=== PATIENT | female | born 1965 | race American Indian/Alaskan Native ===

== ENCOUNTER 2016-12-04 13:16 | Emergency (ER) | payer OTHER | END 2016-12-04 14:15 | disposition left against medical advice (07) | LOC: ED 13:16 | DX: R50.9 Fever, unspecified (principal); R11.0 Nausea; Z53.21 Procedure and treatment not carried out due to patient leaving prior to being seen by health care provider ==

== ENCOUNTER 2016-12-31 07:47 | Day surgery (SDC) | payer OTHER ==
[~2016-12-31 07:47] MED LIST: FLAGYL 500 MG/100 ML 500 MG/100 ML BAG IV NR
[2016-12-31] MEDS ORDERED: NACL BACTERIOSTATIC INFILTRATI ONE (08:10)
--- NOTE | 2016-12-31 08:22 | Anesthesia Consultation ---
Anesthesia Consult and Med Hx Date of service: 12/31/16 - Airway Anesthetic Teeth Evaluation: Poor, Chipped ROM Head & Neck: Adequate Mental/Hyoid Distance: Adequate Mallampati Class: Class II Intubation Access Assessment: Probably Good - Pulmonary Exam CTA: Yes - Cardiac Exam Cardiac Exam: RRR - Pre-Operative Health Status ASA Pre-Surgery Classification: ASA3 Proposed Anesthetic Plan: General - Pulmonary Hx Smoking: Yes Hx Asthma: No COPD: No Hx Pneumonia: No Hx Sleep Apnea: No - Cardiovascular System Hx Hypertension: Yes (15 YRS) Hx Percutaneous Transluminal Coronary Angioplasty (PTCA): No - Central Nervous System Hx Psychiatric Problems: No - Gastrointestinal Hx Ulcer: No - Endocrine Hx Cirrhosis: No Hx Insulin Dependent Diabetes: Yes - Other Systems Hx Alcohol Use: Yes (OCCASIONALLY) Hx Substance Use: No Hx Cancer: No
--- NOTE | 2016-12-31 08:22 | Anesthesia Day of Surgery ---
Anesthesia Day of Surgery - Day of Surgery Patient Examined: Yes Patient H&P Reviewed: Yes Patient is NPO: Yes
[2016-12-31] MEDS ORDERED: DILAUDID IV PRN (08:23)
[2016-12-31] MEDS: NACL 0.9% 1000 ML 1,000 ML IV SCH ×2 (08:37→11:30)
[2016-12-31] MEDS: VERSED IV NR ×2 (08:44→09:18)
[2016-12-31] MEDS ORDERED: SUBLIMAZE ONE (08:49)
[2016-12-31] MEDS ORDERED: DIPRIVAN 10 MG/ML IV ONE (08:49)
[2016-12-31] MEDS ORDERED: DECADRON ONE (08:56)
[2016-12-31] MEDS ORDERED: ZOFRAN ONE (08:56)
[2016-12-31] MEDS ORDERED: PEPCID PO NR (09:00)
[2016-12-31] MEDS ORDERED: NEO SYNEPHRINE/NS Syringe(OR USE) IV ONE (09:58)
[2016-12-31] MEDS ORDERED: PROAIR IH ONE (10:05)
[2016-12-31] MEDS ORDERED: OMNIPAQUE (300 MG) IV ONE ×2 (10:14)
[2016-12-31] MEDS ORDERED: WATER FOR IRRIG STERILE IR ONE ×3 (10:14)
[2016-12-31] MEDS ORDERED: XYLOCAINE MPF 2% ONE (10:19)
[2016-12-31] MEDS ORDERED: DILAUDID ONE (10:19)
[2016-12-31] MEDS ORDERED: TORADOL ONE (10:24)
--- NOTE | 2016-12-31 10:35 | Short Stay Summary ---
Short Stay Documentation Date of service: 12/31/16 - History H&P: obtained from office - Allergies and Medications Current Medications: Allergies acetaminophen [From Percocet] Adverse Reaction (Verified 01/28/15 01:53) Unknown doxycycline Adverse Reaction (Verified 01/28/15 01:53) Unknown erythromycin base Adverse Reaction (Verified 01/28/15 01:53) Unknown latex Adverse Reaction (Verified 01/28/15 01:52) Unknown oxycodone HCl [From Percocet] Adverse Reaction (Verified 01/28/15 01:53) Unknown prochlorperazine edisylate [From Compazine] Adverse Reaction (Verified 01/28/15 01:52) Unknown prochlorperazine maleate [From Compazine] Adverse Reaction (Verified 01/28/15 01 :52) Unknown propoxyphene napsylate [From Darvocet-N] Adverse Reaction (Verified 01/28/15 01: 53) Unknown tuberculin, purified protein deriva [tuberculin,purif.prot.deriv.] Adverse Reaction (Verified 01/28/15 01:53) Unknown Home Medications Medication Instructions Recorded Confirmed Last Taken Type Aspirin [Aspirin BABY CHEW TAB] 81 mg PO DAILY 01/28/15 12/28/16 12/23/16 History Insulin Glargine,Hum.rec.anlog 75 units SQ QHS 01/28/15 12/28/16 10/14/15 History [Lantus] Insulin Lispro [HumaLOG VIAL] 30 units SQ AC 01/28/15 12/31/16 1 Week Ago History Losartan/Hydrochlorothiazide 1 tab PO DAILY 01/28/15 12/31/16 12/31/16 06:30 History [Hyzaar 100-25 TAB] 1 TAB Pravastatin Sodium [Pravastatin] 20 mg PO DAILY 01/28/15 12/31/16 12/30/16 10: 00 History 20MG Estrogen,Joselin/Me-Testosterone 1 each PO 12/28/16 12/30/16 10:00 History [Eemt Ds 1.25-2.5 mg Tablet] Insulin Glargine,Hum.rec.anlog 75 units SQ QHS 12/28/16 12/31/16 12/30/16 22:00 History [Toujeo Solostar] 75 UNITS Mirabegron [Myrbetriq] 50 mg PO QDAY 12/31/16 12/31/16 12/30/16 10:00 History Active Medications Famotidine (Pepcid) 20 mg PO PREOP NR Stop: 12/31/16 23:59 Last Admin: 12/31/16 08:41 Dose: 20 mg Hydromorphone HCl (Dilaudid) 0.5 mg IV Q10MIN PRN PRN Reason: Pain , Severe (7-10) Stop: 12/31/16 16:00 Metronidazole (Flagyl 500 Mg/100 Ml) 500 mg in 100 mls @ 100 mls/hr IV PREOP NR PRN Reason: Protocol Stop: 12/31/16 23:59 Sodium Chloride (Nacl 0.9% 1000 Ml) 1,000 mls @ 100 mls/hr IV DIRECT RAY Last Admin: 12/31/16 08:37 Dose: 100 mls/hr Midazolam HCl (Versed) 2 mg IV PREOP NR Stop: 12/31/16 23:59 Last Admin: 12/31/16 09:18 Dose: 1 mg - Brief post op/procedure progress note Date of procedure: 12/31/16 Pre-op diagnosis: recurrent UTI Post-op diagnosis: same Procedure: cysto, rpg, hydrodistention (700cc) urethral dilation Anesthesia: GETA Surgeon: JESSE MICHAEL Condition: stable - Hospital course Hospital course: ceftin & norco - Disposition Condition at discharge: Stable Disposition: DISCHARGED TO HOME OR SELFCARE Short Stay Discharge Plan Follow up with: ZACHERY BENAVIDES MD [Primary Care Provider] - 7 Days
--- NOTE | 2016-12-31 10:43 | Post Anesthesia Evaluation ---
- Post Anesthesia Evaluation Patient Participated: Yes Airway Patent: Yes Stable Respiratory Function: Yes Nausea/Vomiting: No Temp > 96.8F: Yes Pain Manageable: Yes Adequeate Hydration: Yes Anesthesia Complications: No
--- NOTE | 2016-12-31 11:18 | Operative Report ---
PREOPERATIVE DIAGNOSES: Recurrent urinary tract infection, microhematuria. POSTOPERATIVE DIAGNOSES: Recurrent urinary tract infection, microhematuria. SECONDARY DIAGNOSIS: Urethral stenosis. PROCEDURE: Cystoscopy, bilateral retrograde pyelograms, hydrodistention, urethral dilatation to [place]. SURGEON: Abilio Camarena M.D. ANESTHESIA: General. ANESTHESIOLOGIST: Harry Mckeon M.D. ESTIMATED BLOOD LOSS: Minimal. FLUIDS: Crystalloid. COMPLICATIONS: No complications. INDICATIONS: This patient is a 51-year-old female seen in the office for recurrent urinary tract infection. The patient states she has had multiple UTIs in the past and was noted to have scar tissue. CT of abdomen and pelvis was unremarkable. She presents now for surgical intervention. Previously, she has had an appendectomy and hysterectomy. DESCRIPTION OF PROCEDURE: The patient was taken to the operative suite, placed into supine position. After adequate general anesthesia, placed in a dorsal lithotomy position, prepped and draped in a sterile fashion. Pancystourethroscopy was performed with a 22[place] cystoscope. The patient was noted to have some urethral stenosis. Bladder, no tumors or stones were noted. Both ureteral orifices in normal position. Bilateral retrograde pyelograms were obtained with an 8[place] catheter and 8 mL of contrast. No filling defects or obstruction. The patient was noted to have some retained dye from appears to be previous colonic procedure (Gastrografin enema, etc.). Bilateral retrograde pyelograms were obtained with an 8[place] catheter and 8 mL of contrast. No filling defects or obstruction. Hydrodistention was performed. Bladder capacity of 700 mL. Second look into her bladder, no petechiae or hemorrhage to suggest IC. Urethral dilatation with sounds to [place] was performed. The patient tolerated the procedure well. She was extubated and taken to the recovery room. She will go home on Ceftin and [place] and follow up in the office. JOB# [id number] [facility]
[2016-12-31] MEDS ORDERED: BENADRYL IV ONE (11:45)
[2016-12-31 12:30] VITALS: BP 126/89
--- NOTE | 2016-12-31 12:39 | Fluoroscopy Report ---
RETROGRADE PYELOGRAM: History: Hematuria. There is adequate filling of the ureters and intrarenal collecting systems with no filling defects or anatomic abnormalities identified.
--- NOTE | 2016-12-31 20:59 | Admit Criteria Form ---
Admission Criteria Documentation: AMBULATORY SURGERY EXCEPTION CRITERIA Ambulatory Surgery Exception Criteria ( Place 'X' for any and all applicable criteria): Surgery or procedure performed on ambulatory basis may require inpatient stay for[A] ANY ONE of the following(1)(2)(3)(4)(5)(6)(7)(8)(9): [X] I. A preoperative situation, condition, or finding that warrants inpatient stay as indicated by ANY ONE of the following: [] a) Inpatient care needed because of severity of a disease or condition rather than the surgery (eg, severe cardiac or respiratory disease, severe infection) (15) (16 ) (17) (18) [] b) Emergent procedure (eg, angioplasty for acute ischemia)(19) [] c) Complex surgical approach or situation as indicated by ANY ONE of the following(3): [] i) Open approach needed instead of usual endoscopic, transcatheter, or other less invasive procedure [] ii) Difficult approach because of previous operation [] iii) Airway monitoring required after open neck procedures(20)(21) [] iv) Large mass requiring unusually extensive dissection [] v) Additional complicating feature requiring inpatient care (eg, drain management)(22(23): [X] d) Major surgery in a pt with high anesthetic risk as indicated by ANY ONE of the following (2)(3)(5)(7)(8): [X] i) ASA risk class III or higher (severe systemic disease impairing function) [D] [] ii) Advanced age (eg, older than 85 years)(14)(24) [] iii) Symptomatic heart failure(25) [] iv) Symptomatic asthma or COPD(8)(21) [] v) Morbid obesity with hemodynamic or respiratory problems(20)( 21)(26)(27) [] vi) Obstructive sleep apnea(20)(21) [] vii) Former premature infants who are younger than 60 weeks [] viii) High risk for severe postoperative abnormalities (eg, severe postoperative hypocalcemia after parathyroidectomy for severe hyperparathyroidism)(27)( 28) [] ix) Unstable angina(25) [] e) Drug-related risk requiring inpatient stay as indicated by ANY ONE of the following(5)(10)(14)(32)(33) [] i) Procedure requires discontinuing drugs or other therapy (eg , antiarrhythmic medication, antiseizure medication), which necessitates inpatient observation or treatment.(18)(31) [] ii) Major surgery and high risk drug use as indicated by ANY ONE of the following: [] 1) Active abuse of cocaine or similar drug [] 2) Monoamine oxidase inhibitor use [] 3) Other drug identified as posing risk [] f) Inadequate outpatient care situation as indicated by ANY ONE of the following(5)(10)(14)(32)(33) [] i) Patient lives remote from medical facility and procedure has urgent complication potential, and temporary nearby residence cannot be arranged [] ii) Patient will have postprocedure incapacitation and inadequate assistance at home, or alternative level of care cannot be arranged. [] iii) Patient will have long general anesthesia or procedure side effect resolution time, and competent person to stay with patient on first postoperative night at home or alternative level of care cannot be arranged. []iv) Other inadequate outpatient situation that cannot be handled by other means [] II. A perioperative event, condition, or finding that warrants inpatient stay as indicated by ANY ONE of the following (1)(2)(3): [] a) Inadequate physiologic recovery: cardiovascular, respiratory, or hemodynamic status not normal or near preoperative baseline(18) [] b) Hemodynamic instability [] c) Patient not alert with near normal or baseline mental status [] d) Temperature not normal or as expected and not appropriate for outpatient treatment of condition [] e) Ambulatory or appropriate activity level status not yet achieved post procedure [E](34)(35)(36) [] f) Operative site not appropriate (eg, unexpected or excessive drainage or bleeding) [] g) Postoperative effects not resolved or adequately managed (eg, significant pain or vomiting not appropriate for outpatient or next level of care)(10)(12) [] h) Complicating features requiring inpatient care as indicated by ANY ONE of the following(37): [] i) Severe complications of procedure (eg, bowel injury, airway compromise, vascular injury,severe hemorrhage) [] ii) Extensive (eg, dissection far beyond usual scope of procedure ) or prolonged (eg, 120 minutes beyond usual) surgery needed requiring inpatient postoperative care [] iii) Conversion to an open or complex procedure that requires inpatient care (eg, open vs laparoscopic cholecystectomy, abdominal vs vaginal hysterectomy)(38) [] iv) Comorbid condition or test result identified during or post procedure that requires inpatient care (7) [] v) Malignant hyperthermia(30) [] vi) Other complicating feature requiring inpatient care(22)(23) Inpatient stay may be needed until ALL of the following are present (1)(2)(3)(4) (5)(6)(10)(14)(33)(40): []a) Physiologic recovery: cardiovascular, respiratory, and hemodynamic status normal or near preoperative baseline []b) Hemodynamic stability []c) Patient alert, with near normal or baseline mental status []d) Temperature appropriate: patient afebrile or temperature appropriate for outpt treatment of condition []e) Activity level appropriate: ambulatory or appropriate activity level post procedure []f) Operative site appropriate as indicated by ALL of the following: []i) Site dry or with expected drainage []ii) Any blood noted is as expected for procedure. []g) Postoperative effects resolved or managed as indicated by ALL of the following: []i) Pain management appropriate for outpatient (or next level of) care(10) []ii) Minimal nausea and vomiting: if present, successfully treated with oral medication(12) []iii) Headache, dizziness, or drowsiness (if present) are mild. []h) Voiding status acceptable as indicated by ANY ONE of the following: []i) Voiding spontaneously []ii) No voiding but instructions given for follow-up in 6 to 8 hours []iii) Urinary catheter in place, and instructions given for follow-up []i) Complicating features requiring inpatient care manageable at a lower level of care(37) []j) Comorbid conditions manageable at a lower level of care(37) The original [employer] content created by [employer] has been revised. The portions of the content which have been revised are identified through the use of italic text or in bold, and [facility] [employer] has neither reviewed nor approved the modified material. All other unmodified content is copyright [employer]. Please see references footnoted in the original [employer] edition 2016 Admission Criteria Met: Yes
== END 2016-12-31 12:25 | disposition home or self-care (01) ==
LOC: OR 07:47
PROVIDERS: ATTEND Urology
DX: N35.9 Urethral stricture, unspecified (principal); N39.0 Urinary tract infection, site not specified; R31.29 Other microscopic hematuria; I10 Essential (primary) hypertension; E11.9 Type 2 diabetes mellitus without complications; Z87.891 Personal history of nicotine dependence
CPT/HCPCS: 52281; 74420; 82962; A4217; C1758; J1100; J1170; J1200; J1885; J2250; J2370; J2405; J2704; J3010; J7030; Q9967